=== PATIENT | female | born 1975 | race African-American/Black ===

== ENCOUNTER → 2018-08-18 | Outpatient (CLI) | payer OTHER ==
[~2018-08-18] MED LIST: BENADRYL25 MG PO; LEXAPRO 10 MG T10 M1; PREDNISONE 20 M20 MG PO
== END ==
LOC: RAD 09:58
DX: Z12.31 Encounter for screening mammogram for malignant neoplasm of breast (principal)

== ENCOUNTER → 2019-01-21 | Outpatient (CLI) | payer OTHER | LOC: ULTRA 12-18 14:47 | DX: N60.01 Solitary cyst of right breast (principal); N60.02 Solitary cyst of left breast; R92.8 Other abnormal and inconclusive findings on diagnostic imaging of breast ==